=== PATIENT | female | born 1965 | race Caucasian/White ===

== ENCOUNTER 2018-07-01 21:18 | Inpatient (IN) | payer BC ==
[2018-07-01 22:57] LABS: ADD MAN DIFF? NO
[2018-07-01 22:59] LABS: BASOPHILS % 0.4 % (0.0-2.0); EOSINOPHILS # 0.1 10^3/ul (0.0-0.5); EOSINOPHILS % 1.5 % (0.0-7.0); HEMATOCRIT 36.2 % (37.0-47.0); HEMOGLOBIN 11.4 g/dl (12.0-16.0); LYMPHOCYTES # 2.6 10^3/ul (0.8-2.9); LYMPHOCYTES % 48.5 % (15.0-51.0); MEAN CORPUSCULAR HEMOGLOBIN 27.4 pg (29.0-33.0); MEAN CORPUSCULAR HGB CONC 31.5 g/dl (32.0-37.0); MEAN PLATELET VOLUME 9.4 fl (7.4-10.4); MONOCYTE # 0.4 10^3/ul (0.3-0.9); MONOCYTES % 6.7 % (0.0-11.0); NEUTROPHIL # 2.3 10^3/ul (1.6-7.5); NEUTROPHILS % 42.7 % (39.0-77.0); PLATELET COUNT 225 10^3/UL (140-415); RED BLOOD COUNT 4.16 10^6/ul (4.20-5.40); RED CELL DISTRIBUTION WIDTH 15.6 % (11.5-14.5)
[2018-07-01 22:59] LABS: WHITE BLOOD COUNT 5.4 10^3/ul (4.8-10.8)
[2018-07-01] MEDS: SOD CHLORIDE 0.9% 1,000 ML IV (23:04)
[2018-07-01 23:16] LABS: ALANINE AMINOTRANSFERASE 15 IU/L (13-69); ALBUMIN 4.5 g/dl (3.3-4.9); ALBUMIN/GLOBULIN RATIO 1.12; ALKALINE PHOSPHATASE 56 IU/L (42-121); ANION GAP 5 (5-13); ASPARTATE AMINO TRANSFERASE 22 IU/L (15-46); BILIRUBIN,INDIRECT 0.2 mg/dl (0-1.1); BILIRUBIN,TOTAL 0.2 mg/dl (0.2-1.3); BLOOD UREA NITROGEN 18 mg/dl (7-20); CALCIUM 9.7 mg/dl (8.4-10.2); CARBON DIOXIDE 31 mmol/L (21-31); CHLORIDE 107 mmol/L (97-110); CREATININE 0.84 mg/dl (0.44-1.00); Estimated GFR > 60 mL/min (>60); GLUCOSE 97 mg/dl (70-220); LIPASE 201 U/L (23-300); POTASSIUM 4.1 mmol/L (3.5-5.1); SODIUM 143 mmol/L (135-144); TOTAL PROTEIN 8.5 g/dl (6.1-8.1)
[2018-07-01 23:22] LABS: ADD UMIC YES; UR ASCORBIC ACID 40 mg/dL (NEGATIVE); UR BILIRUBIN (Dip) NEGATIVE (NEGATIVE); UR BLOOD (Dip) NEGATIVE (NEGATIVE); UR CLARITY CLEAR (CLEAR); UR COLOR YELLOW (YELLOW); UR GLUCOSE (Dip) NEGATIVE (NEGATIVE); UR KETONES (Dip) NEGATIVE (NEGATIVE); UR LEUKOCYTE ESTERASE (Dip) 2+ Leu/ul (NEGATIVE); UR MUCUS FEW /HPF (NONE SEEN); UR NITRITE (Dip) NEGATIVE (NEGATIVE); UR RBC 3 /HPF (0-5); UR SPECIFIC GRAVITY (Dip) 1.023 (1.003-1.030); UR SQUAMOUS EPITHELIAL CELL FEW /HPF (FEW); UR TOTAL PROTEIN (Dip) NEGATIVE (NEGATIVE); UR UROBILINOGEN (Dip) NEGATIVE (NEGATIVE); UR WBC 16 /HPF (0-5)
[2018-07-01 23:27] LABS: TROPONIN-I < 0.012 ng/ml (0.000-0.120)
[2018-07-01] MEDS: ASPIRIN 81 MG TAB PO (23:58)
[2018-07-01] MEDS: CEFTRIAXONE 1 GM/50 ML (PMX) 50 ML IVPB (23:58)
[2018-07-02 06:55] LABS: HEMATOCRIT 32.4 % (37.0-47.0); HEMOGLOBIN 10.3 g/dl (12.0-16.0); MEAN CORPUSCULAR HEMOGLOBIN 27.6 pg (29.0-33.0); MEAN CORPUSCULAR HGB CONC 31.8 g/dl (32.0-37.0); MEAN CORPUSCULAR VOLUME 86.9 fl (82.0-101.0); PLATELET COUNT 183 10^3/UL (140-415); RED BLOOD COUNT 3.73 10^6/ul (4.20-5.40); RED CELL DISTRIBUTION WIDTH 15.7 % (11.5-14.5)
[2018-07-02 06:55] LABS: WHITE BLOOD COUNT 4.5 10^3/ul (4.8-10.8)
[2018-07-02 07:12] LABS: ANION GAP 5 (5-13); BLOOD UREA NITROGEN 15 mg/dl (7-20); CALCIUM 9.2 mg/dl (8.4-10.2); CARBON DIOXIDE 29 mmol/L (21-31); CHLORIDE 109 mmol/L (97-110); CREATININE 0.75 mg/dl (0.44-1.00); Estimated GFR > 60 mL/min (>60); GLUCOSE 101 mg/dl (70-220); POTASSIUM 4.4 mmol/L (3.5-5.1); SODIUM 143 mmol/L (135-144)
[2018-07-02 07:19] LABS: ADD MAN DIFF? YES
[2018-07-02 10:11] LABS: BASOPHILS % (M) 1 % (0-2); LYMPHOCYTES #M 2.6 10^3/ul (0.8-2.9); LYMPHOCYTES % (M) 58 % (15-51); MONOCYTE #M 0.2 10^3/ul (0.3-0.9); MONOCYTES % (M) 5 % (0-11); PLATELET ESTIMATE NORMAL; SEGMENTED NEUTROPHILS (M) % 36 % (39-77); SMUDGE%M 32 % (0-0)
[2018-07-02] MEDS ORDERED: LORAZEPAM 2 MG INJ IV (12:00)
[2018-07-02] MEDS ORDERED: ACETAMINOPHEN 325 MG TAB PO (12:00)
[2018-07-03] MEDS: ASPIRIN (EC) 81 MG TAB PO (08:25)
[2018-07-03] MEDS: BARIUM SULF 2% 450 ML BTL (BERRY SMOOTHIE) PO (11:45)
[2018-07-04 06:05] LABS: RETICULOCYTE COUNT # 0.033 X10^6 (0.020-0.110); RETICULOCYTE COUNT % 0.9 % (0.5-1.5)
[2018-07-04 06:05] LABS: RETICULOCYTE RBC 3.81
[2018-07-04 06:39] LABS: URIC ACID 4.1 mg/dl (3.1-7.9)
[2018-07-04 06:39] LABS: LACTATE DEHYDROGENASE 361 IU/L (313-618)
[2018-07-04 06:40] LABS: IRON 44 ug/dl (35-150)
[2018-07-04 06:49] LABS: IMMUNOGLOBULIN A 283 mg/dl (70-400)
[2018-07-04 06:49] LABS: IMMUNOGLOBULIN G 1152 mg/dl (700-1600); IMMUNOGLOBULIN M 288 mg/dl (40-230)
[2018-07-04 06:51] LABS: % IRON SATURATION 15 % SAT (22-52); TOTAL IRON BINDING CAPACITY 302 ug/dl (241-421)
[2018-07-04 07:17] LABS: FERRITIN 10.3 ng/ml (11.1-264.0)
[2018-07-04 07:34] LABS: ERYTHROCYTE SEDIMENTATION RATE 42 mm/Hr (0-30)
[2018-07-04] MEDS: ASPIRIN (EC) 81 MG TAB PO (08:29)
[2018-07-04 08:31] LABS: FOLATE 12.1 ng/ml (2.8-20.0)
[2018-07-04 09:03] LABS: CANCER ANTIGEN 125 < 5.5 U/ml (0.0-35.0); CARCINOEMBRYONIC ANTIGEN < 0.3 ng/ml (0.0-5.0)
[2018-07-04 09:05] LABS: CANCER ANTIGEN 19-9 9.1 U/ml (0.0-37.0)
[2018-07-04 12:10] LABS: OCCULT BLOOD STOOL NEGATIVE (NEGATIVE)
[2018-07-04] MEDS: BARIUM SULF 2% 450 ML BTL (BERRY SMOOTHIE) PO (12:30)
[2018-07-04] MEDS: IOHEXOL 300MG/ML 150 ML BTL (13:25)
[2018-07-04] MEDS: SOD CHLORIDE 0.9% 100 ML (13:25)
[2018-07-04] MEDS: ATORVASTATIN 40 MG TAB PO (20:43)
[2018-07-05] MEDS: LEVOTHYROXINE 50 MCG TAB PO (06:20)
[2018-07-05 06:52] LABS: ADD MAN DIFF? NO
[2018-07-05 06:56] LABS: BASOPHILS % 0.2 % (0.0-2.0); EOSINOPHILS # 0.1 10^3/ul (0.0-0.5); EOSINOPHILS % 2.8 % (0.0-7.0); HEMATOCRIT 33.2 % (37.0-47.0); HEMOGLOBIN 10.5 g/dl (12.0-16.0); LYMPHOCYTES # 2.3 10^3/ul (0.8-2.9); LYMPHOCYTES % 45.6 % (15.0-51.0); MEAN CORPUSCULAR HEMOGLOBIN 27.5 pg (29.0-33.0); MEAN CORPUSCULAR HGB CONC 31.6 g/dl (32.0-37.0); MEAN CORPUSCULAR VOLUME 86.9 fl (82.0-101.0); MEAN PLATELET VOLUME 9.6 fl (7.4-10.4); MONOCYTE # 0.5 10^3/ul (0.3-0.9); MONOCYTES % 9.7 % (0.0-11.0); NEUTROPHILS % 41.5 % (39.0-77.0); PLATELET COUNT 188 10^3/UL (140-415); RED BLOOD COUNT 3.82 10^6/ul (4.20-5.40); RED CELL DISTRIBUTION WIDTH 15.3 % (11.5-14.5)
[2018-07-05 06:56] LABS: WHITE BLOOD COUNT 4.9 10^3/ul (4.8-10.8)
[2018-07-05 07:24] LABS: ANION GAP 3 (5-13); BLOOD UREA NITROGEN 17 mg/dl (7-20); CALCIUM 9.1 mg/dl (8.4-10.2); CARBON DIOXIDE 30 mmol/L (21-31); CHLORIDE 108 mmol/L (97-110); CREATININE 0.82 mg/dl (0.44-1.00); Estimated GFR > 60 mL/min (>60); GLUCOSE 98 mg/dl (70-220); POTASSIUM 4.2 mmol/L (3.5-5.1); SODIUM 141 mmol/L (135-144)
[2018-07-05] MEDS: ASPIRIN (EC) 81 MG TAB PO (08:21)
[2018-07-05 10:12] LABS: CA27.29 32 U/mL (<38)
[2018-07-05 14:07] LABS: IMMUNOGLOBULIN E 82 kU/L (<OR=114)
[2018-07-05 14:53] LABS: PROTEIN, TOTAL 6.8 g/dL (6.1-8.1)
[2018-07-05 23:23] LABS: ALBUMIN 3.9 g/dL (3.8-4.8); ALPHA-1-GLOBULINS 0.2 g/dL (0.2-0.3); ALPHA-2-GLOBULINS 0.6 g/dL (0.5-0.9); BETA 2 GLOBULINS 0.3 g/dL (0.2-0.5); BETA GLOBULINS 0.4 g/dL (0.4-0.6); GAMMA GLOBULINS 1.4 g/dL (0.8-1.7)
[2018-07-06] MEDS ORDERED: LEVOTHYROXINE 75 MCG TAB PO (06:00)
[2018-07-06 23:24] LABS: CANCER ANTIGEN 15-3 20 U/mL (<32)
== END 2018-07-05 15:46 | disposition home or self-care (01) | DRG 69 ==
LOC: E/R 21:18 → TEL 07-02 00:05
DX: G45.9 Transient cerebral ischemic attack, unspecified (principal); R53.1 Weakness; E03.9 Hypothyroidism, unspecified; D32.0 Benign neoplasm of cerebral meninges; D64.9 Anemia, unspecified
CPT/HCPCS: 36415; 70450; 70553; 71045; 71260; 74177; 77075; 80048; 80053; 81001; 82270; 82306; 82378; 82570; 82607; 82728; 82746; 82784; 82785; 83540; 83615; 83690; 84155; 84156; 84165; 84166; 84443; 84484; 84560; 85025; 85045; 85651; 86300; 86301; 86304; 86320; 86325; 93005; 93306; 93880; 96374; 99285-25